=== PATIENT | male | born 1960 | race African-American/Black ===

== ENCOUNTER 2016-07-03 10:07 | Emergency (ER) | payer OTHER ==
[2016-07-03] MEDS ORDERED: Ciprofloxacin 0.3% OPTH.SOL* 2.5 ML BTL RIGHT EYE ONE (10:56)
[2016-07-03 11:27] VITALS: BP 138/84
--- NOTE | 2016-07-03 11:44 | ED ---
Throat Pain/Nasal Congestion - HPI Summary HPI Summary: Patient is incarcerated. He wears contacts and yesterday felt like something was stuck in his eye, like fuzz. He took his contact out and flushed the eye with water but the feeling did not improve. This AM the eye felt worse and hurt to even open. He denies headache, itchiness or drainage. He has photophobia and foreign body sensation. - History of Current Complaint Chief Complaint: EDEyeProblem Time Seen by Provider: 07/03/16 10:16 Hx Obtained From: Patient Onset/Duration: Gradual Onset, Lasting Days - 1, Still Present Severity: Severe Associated Signs And Symptoms: Positive: FB Sensation Cough: None - Allergies/Home Medications Allergies/Adverse Reactions: Allergies Allergy/AdvReac Type Severity Reaction Status Date / Time No Known Allergies Allergy Verified 07/03/16 10:14 PMH/Surg Hx/FS Hx/Imm Hx Sensory History: Reports: Hx Contacts or Glasses Opthamlomology History: Reports: Hx Contacts or Glasses Infectious Disease History: No Infectious Disease History: Denies: Traveled Outside the in Last 30 Days - Social History Occupation: Unemployed Lives: [place]-Way - half-way Alcohol Use: None Substance Use Type: Reports: None Smoking Status (MU): Former Smoker Review of Systems Negative: Fever, Chills Positive: Photophobia, Blurred Vision - patient can not open eye due to tearing and without contacts his vision is severely decreased, Drainage - clear, Erythema - right sclera. Negative: Diplopia Negative: Headache All Other Systems Reviewed And Are Negative: Yes Physical Exam Triage Information Reviewed: Yes Vital Signs On Initial Exam: Initial Vitals Temp Pulse Resp BP Pulse Ox 97.0 F 72 14 121/79 100 07/03/16 10:10 07/03/16 10:10 07/03/16 10:10 07/03/16 10:10 07/03/16 10:10 Vital Signs Reviewed: Yes Appearance: Positive: Well-Appearing, Well-Nourished, Pain Distress Skin: Positive: Warm, Skin Color Reflects Adequate Perfusion, Dry, Soft Head/Face: Positive: Normal Head/Face Inspection Eyes: Positive: EOMI, ESPERANZA, Conjunctiva Inflammed - right sclera, Discharge - tearing ENT: Positive: Hearing grossly normal Respiratory/Lung Sounds: Positive: Breath Sounds Present Cardiovascular: Positive: RRR Musculoskeletal: Negative: Edema Left, Edema Right Neurological: Positive: Sensory/Motor Intact, Alert, Oriented to Person Place, Time, NV Bundle Intact Distally, Normal Gait Psychiatric: Positive: Affect/Mood Appropriate AVPU Assessment: Alert Procedures - Eye Procedure Alcaine Drops Administered: Yes Antibiotic Ointment/Drps Admin: right eye Diagnostics - Vital Signs Vital Signs Temp Pulse Resp BP Pulse Ox 07/03/16 11:20 97.8 F 61 12 138/84 07/03/16 10:10 97.0 F 72 14 121/79 100 - Laboratory Lab Statement: Any lab studies that have been ordered have been reviewed, and results considered in the medical decision making process. EENT Course/Dx - Differential Diagnoses Differential Diagnoses: Abrasion, Conjunctivitis, Corneal Abrasion, Detached Retina, Retinal Artery Occlusion, Uveitis - Diagnoses Provider Diagnoses: Corneal abrasion Discharge - Discharge Plan Condition: Stable Disposition: HOME Patient Education Materials: Corneal Abrasion (ED) Referrals: Will Nair MD [Medical Doctor] - Additional Instructions: Please use the drops provided as prescribed. Take ibuprofen 600mg three times daily with meals for the next 3-5 days. You need to follow-up with Dr. Nair in the next 24-48 for evaluation. Return to the emergency department if your symptoms worsen.
== END 2016-07-03 11:20 | disposition home or self-care (01) ==
LOC: ED 10:07
DX: S05.01XA Injury of conjunctiva and corneal abrasion without foreign body, right eye, initial encounter (principal); X58.XXXA Exposure to other specified factors, initial encounter; Y92.9 Unspecified place or not applicable; Z87.891 Personal history of nicotine dependence
CPT/HCPCS: 99282; A9270-GY